=== PATIENT | female | born 1945 | race Caucasian/White ===

== ENCOUNTER 2020-01-01 09:35 | Inpatient (IN) ==
[2020-01-01] MEDS ORDERED: TUBERSOL ID ONE (15:32)
[2020-01-01] MEDS ORDERED: MAALOX PLUS LIQUID PO PRN (15:32)
[2020-01-01] MEDS ORDERED: ZOFRAN ODT PO PRN (15:32)
[2020-01-01] MEDS ORDERED: NICODERM PATCH TD PRN (15:32)
[2020-01-01] MEDS ORDERED: NICOTINE GUM BUCCAL PRN (15:32)
[2020-01-01] MEDS ORDERED: PHENOBARBITAL IV PRN (15:32)
[2020-01-01] MEDS ORDERED: DULCOLAX PR PRN (15:32)
[2020-01-01] MEDS ORDERED: D5W 1,000 ML IV PRN (15:32)
[2020-01-01] MEDS ORDERED: ZOFRAN IM PRN (15:32)
[2020-01-01] MEDS ORDERED: SENOKOT PO PRN (15:32)
[2020-01-01] MEDS ORDERED: ZOFRAN IV PRN (15:32)
[2020-01-01] MEDS ORDERED: DESYREL PO PRN (15:32)
[2020-01-01] MEDS ORDERED: IMODIUM PO PRN ×2 (15:32)
[2020-01-01] MEDS ORDERED: MOTRIN PO PRN (15:32)
[2020-01-01] MEDS ORDERED: ROBAXIN PO PRN (15:50)
[2020-01-01] MEDS ORDERED: SALINE LOCK IV FLUID XX ONE (15:50)
[2020-01-01] MEDS ORDERED: ATARAX PO PRN (15:50)
[2020-01-01] MEDS ORDERED: M.V.I.-12 10 ML, FOLIC ACID 1 MG, MAGNESIUM SULFATE 1 GM, THIAMINE 100 MG in NS 1,000 ML IV ONE (15:50)
[2020-01-01] MEDS ORDERED: BENTYL PO PRN (15:50)
[2020-01-01 15:55] LABS: HEMATOCRIT 35.6 % (37.0-47.0); HEMOGLOBIN 12.3 g/dL (12.0-16.0); MCH 34.5 PG (27-31); MCHC 34.6 g/dL (33-37); MCV 99.7 FL (81-99); MPV 8.2 FL (7.4-10.4); RBC 3.57 XMIL (4.2-5.4); RDW 13.1 % (11.5-14.5)
[2020-01-01 16:19] LABS: ALBUMIN 4.6 g/dL (3.5-5.0); CALCIUM 7.8 mg/dL (8.8-10.2); CREATININE 1.2 mg/dL (0.5-0.9); POTASSIUM 3.5 mmol/L (3.5-5.1); TOTAL BILIRUBIN 0.3 mg/dL (0.20-1.00); TOTAL PROTEIN 7.3 g/dL (6.3-8.3)
[2020-01-01 16:25] LABS: INR 0.89; PROTIME 12.5 Seconds (11.0-16.0)
[2020-01-01] MEDS ORDERED: ATIVAN IV ONE (16:31)
[2020-01-01] MEDS: LIBRIUM PO SCH ×2 (16:37→22:15)
[2020-01-01] MEDS: SEROQUEL PO PRN (22:15)
[2020-01-02] MEDS: LIBRIUM PO SCH ×4 (04:12→21:26)
[2020-01-02] MEDS: PROTONIX PO SCH (06:09)
[2020-01-02 07:41] LABS: URINE SOURCE CLEAN CATCH
[2020-01-02 08:03] LABS: BILIRUBIN URINE NEGATIVE (NEGATIVE); BLOOD URINE NEGATIVE (NEGATIVE); COLOR YELLOW; GLUCOSE URINE NEGATIVE (NEGATIVE); KETONE URINE NEGATIVE (NEGATIVE); LEUKOCYTES URINE NEGATIVE (NEGATIVE); NITRITE URINE NEGATIVE (NEGATIVE); PH URINE 5.5; SP GRAVITY URINE 1.013; TURBIDITY URINE CLEAR (CLEAR); UROBILINOGEN URINE NORMAL (NORMAL)
[2020-01-02 08:04] LABS: URINE BACTERIA NEGATIVE /HPF; URINE RBC <10 /HPF (<10); URINE WBC <10 /HPF (<10)
[2020-01-02 08:09] LABS: UR AMPHETAMINES QUAL NONE DETECTED (NONE DETECT); UR BARBITUATES QUAL NONE DETECTED (NONE DETECT); UR BENZODIAZEPIN QUAL PRESUMPTIVE POSITIVE (NONE DETECT); UR CANNABINOIDS QUAL NONE DETECTED (NONE DETECT); UR COCAINE QUAL NONE DETECTED (NONE DETECT); UR METHADONE QUAL NONE DETECTED (NONE DETECT); UR METHAMPHETAMINE QUAL NONE DETECTED (NONE DETECT); UR OPIATES QUAL NONE DETECTED (NONE DETECT); UR OXYCODONE QUAL NONE DETECTED (NONE DETECT); UR PCP QUAL NONE DETECTED (NONE DETECT); UR PROPOXYPHENE QUAL NONE DETECTED (NONE DETECT); UR TCA QUAL PRESUMPTIVE POSITIVE (NONE DETECT)
[2020-01-02 08:12] LABS: PROTEIN URINE NEGATIVE (NEGATIVE); UR EPITHELIAL CELLS >10 /HPF (<10)
[2020-01-02] MEDS: FOLIC ACID PO SCH (09:09)
[2020-01-02] MEDS: VITAMIN B-1 PO SCH (09:09)
[2020-01-02] MEDS: THERA M PLUS PO SCH (09:09)
[2020-01-02] MEDS: TYLENOL PO PRN (12:07)
[2020-01-02] MEDS ORDERED: ATIVAN IV ONE (12:20)
[2020-01-02] MEDS: SEROQUEL PO PRN (21:26)
--- NOTE | 2020-01-02 22:48 | PROGRESS NOTE ---
DATE: 01/02/2020 SUBJECTIVE: Patient notes that overall she is feeling better. Still having some tremors although tremendously better. Still having some skin crawling but also improved. Denies fevers or chills. PHYSICAL EXAMINATION: Vital Signs: Reviewed. She is awake, alert. She is in no current respiratory distress, lying in the bed. Temperature 98 degrees, pulse 101, respiratory rate 18, BP 110/60, saturating 97% on room air. General: Patient is awake, pleasant. HEENT: Normocephalic. Neck: Supple. Cardiovascular: Regular rate. Chest: Clear. Abdomen: Soft. Extremities: Moves all extremities. Neurologic: No changes. She has no current tremors. ASSESSMENT: 1. Leukocytosis. 2. Hyponatremia. 3. Nausea, vomiting. 4. Tremors. 5. Myalgias. 6. Paresthesias. 7. Alcohol abuse, withdrawal and stabilization. PLAN: We are going to continue high-dose Librium taper, wean as tolerated. Further orders as needed. cc: Forrest Molina MD
[2020-01-03] MEDS: LIBRIUM PO SCH ×5 (04:21→22:00)
[2020-01-03 06:05] LABS: HEMATOCRIT 28.5 % (37.0-47.0); HEMOGLOBIN 9.6 g/dL (12.0-16.0); MCH 33.7 PG (27-31); MCHC 33.7 g/dL (33-37); RBC 2.85 XMIL (4.2-5.4); RDW 12.5 % (11.5-14.5); WBC 4.69 X1000 (4.8-10.8)
[2020-01-03] MEDS: PROTONIX PO SCH (06:18)
[2020-01-03 06:19] LABS: ALBUMIN 3.6 g/dL (3.5-5.0); CALCIUM 7.3 mg/dL (8.8-10.2); POTASSIUM 3.8 mmol/L (3.5-5.1); TOTAL BILIRUBIN 0.4 mg/dL (0.20-1.00); TOTAL PROTEIN 5.7 g/dL (6.3-8.3)
[2020-01-03 06:27] LABS: MAGNESIUM 0.7 mg/dL (1.5-2.7)
[2020-01-03] MEDS: VITAMIN B-1 PO SCH (09:40)
[2020-01-03] MEDS: FOLIC ACID PO SCH (09:40)
[2020-01-03] MEDS: THERA M PLUS PO SCH (09:40)
[2020-01-03] MEDS ORDERED: MAGNESIUM SULFATE 2 GM/S.W.I. 2 GM/50 ML IVPB IV ONE ×2 (13:40→20:00)
[2020-01-03] MEDS: SYMBICORT 160/4.5 MICROGM INHALER INH SCH (19:49)
[2020-01-03] MEDS: TYLENOL PO PRN (20:52)
[2020-01-03] MEDS: SEROQUEL PO PRN (22:57)
--- NOTE | 2020-01-03 23:01 | PROGRESS NOTE ---
DATE: 01/03/2020 SUBJECTIVE: The patient notes that she is feeling a lot better. She is actually sitting up in the bed preparing to eat breakfast. Denies any fevers chills. OBJECTIVE: Vital Signs: Reviewed. General: She is awake, alert. Blood pressure is stable. HEENT: Normocephalic atraumatic, [place]. Neck: Supple. Cardiovascular: Regular rate. Chest: Clear. Abdomen: Soft. Extremities: Moves all extremities. ASSESSMENT: 1. Nausea and vomiting. 2. Abdominal pain. 3. Myalgias. 4. Paresthesias. 5. Hyponatremia. 6. Alcohol abuse, withdrawal and stabilization. PLAN: We are going to continue the patient in the hospital. Continue Librium, decrease to 25 q.6. Continue to follow. Further orders as per hospital course. cc: Forrest Molina MD
[2020-01-04] MEDS: LIBRIUM PO SCH ×4 (03:59→20:49)
[2020-01-04 05:57] LABS: ALBUMIN 3.7 g/dL (3.5-5.0); CALCIUM 7.9 mg/dL (8.8-10.2); CREATININE 1.1 mg/dL (0.5-0.9); MAGNESIUM 1.9 mg/dL (1.5-2.7); TOTAL BILIRUBIN 0.3 mg/dL (0.20-1.00); TOTAL PROTEIN 6.2 g/dL (6.3-8.3)
[2020-01-04] MEDS: PROTONIX PO SCH (06:29)
[2020-01-04 06:39] LABS: HEMATOCRIT 29.6 % (37.0-47.0); HEMOGLOBIN 9.9 g/dL (12.0-16.0); MCH 33.7 PG (27-31); MCHC 33.4 g/dL (33-37); MCV 100.7 FL (81-99); MPV 8.4 FL (7.4-10.4); RBC 2.94 XMIL (4.2-5.4); RDW 12.4 % (11.5-14.5); WBC 5.68 X1000 (4.8-10.8)
[2020-01-04] MEDS: FOLIC ACID PO SCH (08:12)
[2020-01-04] MEDS: VITAMIN B-1 PO SCH (08:12)
[2020-01-04] MEDS: THERA M PLUS PO SCH (08:12)
[2020-01-04] MEDS: SYMBICORT 160/4.5 MICROGM INHALER INH SCH ×2 (08:19→18:42)
[2020-01-04] MEDS: VENTOLIN HFA INH PRN (18:07)
[2020-01-04] MEDS: SEROQUEL PO PRN (20:49)
[2020-01-05] MEDS: VENTOLIN HFA INH PRN (06:38)
[2020-01-05] MEDS: SYMBICORT 160/4.5 MICROGM INHALER INH SCH (06:38)
[2020-01-05 07:27] VITALS: BP 126/62
[2020-01-05] MEDS: PROTONIX PO SCH (08:02)
[2020-01-05] MEDS: VITAMIN B-1 PO SCH (08:02)
[2020-01-05] MEDS: THERA M PLUS PO SCH (08:02)
[2020-01-05] MEDS: LIBRIUM PO SCH (08:03)
[2020-01-05] MEDS: FOLIC ACID PO SCH (08:03)
[2020-01-05] MEDS ORDERED: VIVITROL IM ONE (09:46)
--- NOTE | 2020-01-05 11:21 | HISTORY AND PHYSICAL ---
CHIEF COMPLAINT: Nausea and vomiting. HISTORY OF PRESENT ILLNESS: Patient is a 74-year-old female who presented to [facility] [place] [facility] secondary to nausea, vomiting, abdominal pain, myalgias. Notes she has been heavily drinking. She has been having withdrawal symptoms. SOCIAL HISTORY: She is retired. She is a . Lives at home in [place]. PAST MEDICAL HISTORY: Significant for hypertension, chronic right hip pain, right foot pain since 2004, chronic insomnia since age 3, history of back surgery, chronic anxiety, history of asthma, history of anemia, high cholesterol, vertigo, bladder cancer x2 in 1999 and 2001. MEDICATIONS: 1. Xanax 0.5 b.i.d. 2. Valsartan 25/320 daily. 3. Rosuvastatin 20. 4. Metoprolol 50. 5. Singulair 10. ALLERGIES: No known drug allergies. REVIEW OF SYSTEMS: CIWA score is elevated at 23 secondary to nausea, abdominal pain, tremors at rest, myalgias, paresthesias, feels like her skin is crawling. She is easily frightened and startled, anxious. Easily agitated, unable to sit still. Having some mild sensitivity to light. Denies any auditory or visual hallucinations. Denies any fevers, chills, cough, congestion. Denies dysuria, frequency, urgency, hesitancy, polyuria or polydipsia. Denies skin rashes, weight loss or weight gain. SUBSTANCE ABUSE HISTORY: She was in treatment for mental health at [facility] in 2004. Notes that she started drinking at age 28. Currently is drinking a pint a day for the past 2 years. Started depressants in her 40s, currently taking Xanax as prescribed. Started opiates at 73, currently takes occasionally. She has not had any in the past 18 months. Started nicotine at age 23, smokes half a pack a day, although stopped in 1994. FAMILY HISTORY: Noncontributory. PHYSICAL EXAMINATION: VITAL SIGNS: Reviewed. GENERAL: Patient is awake, alert. She is pleasant. She is jittery and has notable tremors, fidgeting, difficulty concentrating. HEENT: Normocephalic. NECK: Supple. CARDIOVASCULAR: Regular rate. CHEST: Clear. ABDOMEN: Soft. EXTREMITIES: Moves all extremities. NEUROLOGIC: She has no focal changes although does have tremors at rest. SKIN: Warm, dry. No rashes. ASSESSMENT: 1. Nausea and vomiting. 2. Abdominal pain. 3. Myalgias. 4. Paresthesias. 5. Paroxysmal sweating. 6. Alcohol abuse withdrawal and stabilization. 7. Hypertension. 8. High cholesterol. PLAN: We are going to admit the patient to the hospital. Hold her blood pressure and cholesterol medicine for now. We will restart as warranted. Place her on high-dose Librium taper. Begin counseling. Further orders as needed. cc: Forrest Molina MD
--- NOTE | 2020-01-05 11:36 | DISCHARGE SUMMARY ---
ADMISSION DATE: 01/01/2020 DISCHARGE DATE: 01/05/2020 DISCHARGE DIAGNOSES: 1. Nausea and vomiting. 2. Abdominal pain. 3. Myalgias. 4. Paresthesias. 5. Acute sinus infection. 6. Alcohol abuse withdrawal and stabilization. CONSULTATIONS: None. PROCEDURES: None. BRIEF HOSPITAL COURSE: The patient is a 74-year-old female who presented to [facility] secondary to nausea, vomiting, abdominal pain, and myalgias. She notes that she had been heavily drinking. Her withdrawal symptoms were too severe. She was placed on high-dose Librium taper. Counseling was performed each day by myself. On discharge, patient is awake, alert. She is in no distress. She is ambulating the room out into the rodney without any assistance. DISPOSITION: Patient will be discharged home. We did start her on Omnicef for sinus infection. We will continue Librium taper at home. We gave her the first dose of Vivitrol in the hospital. Discussed the use of medication assisted therapy. Discussed that she needs outpatient life counseling as well as drug counseling. TIME SPENT: Greater than 30 minutes was spent in total care. cc: Forrest Molina MD
[2020-01-05] MEDS ORDERED: LIBRIUM PO SCH (15:00)
== END 2020-01-05 11:00 | disposition home or self-care (01) | DRG 897 ==
LOC: P.DIRADM 14:26 → P.MEDSURG 14:42
PROVIDERS: ADMIT Family Medicine; ATTEND Family Medicine